=== PATIENT | male | born 1950 | race Caucasian/White ===

== ENCOUNTER 2020-08-18 08:46 | Outpatient (CLI) | payer MEDICARE, OTHER, SELFPAY ==
--- NOTE | 2020-08-18 08:50 | CT_ITS ---
WS: [id number] LDCT LUNG CANCER SCREENING TECHNIQUE: Noncontrast CT of the chest with coronal and sagittal reformatted images. CLINICAL INFORMATION: F17.210 NICOTINE DEPENDENCE COMPARISON: None. DLP: 61.31 mGy.cm DIvol: 1.[address] scans at [facility] use at least one of these dose optimization techniques: automat ed exposure control; mA and/or kV adjustment per patient size (includes targeted exams where dose is matched to clinical indication); or iterative reconstruction. FINDINGS: Moderate chronic emphysematous changes. No acute pulmonary infiltrates. Noncalcified slightly spicula yoana nodule right upper lobe measuring 5.1 mm. Calcified granuloma right lower lobe. No mediastinal or hilar lymphadenopathy. Aortic calcification. Coronary calcification. No axillary ly mphadenopathy. Hypertrophic changes thoracic spine. Bilateral adrenal adenomas partially visualized a ppear stable since 2018.. CT/CT lung screening [id number] IMPRESSION: LUNG-RADS: 4A-Probably Suspicious FOLLOW UP: 3 Month LDCT
== END 2020-08-18 08:47 | disposition home or self-care (01) ==
LOC: CT 08:47
PROVIDERS: PCP Family Medicine; Visit Provider Family Medicine
DX: Z12.2 Encounter for screening for malignant neoplasm of respiratory organs (principal); F17.210 Nicotine dependence, cigarettes, uncomplicated
CPT/HCPCS: 71271

== ENCOUNTER 2020-12-08 14:06 | Outpatient (CLI) | payer MEDICARE, OTHER, SELFPAY ==
--- NOTE | 2020-12-08 14:13 | CT_ITS ---
WS: [id number] CT CHEST WITHOUT INTRAVENOUS CONTRAST HISTORY: LUNG NODULE TECHNIQUE: Contiguous 5 mm axial imaging performed on the thorax. Coronal and sagittal reformats are submitted. All CT scans at [facility] use at least one of these dose optimization techniq ues: automated exposure control; mA and/or kV adjustment per patient size (includes targeted exams wh ere dose is matched to clinical indication); or iterative reconstruction. CONTRAST: None DLP: 321.73 mGy-cm. COMPARISON: 08/18/2020 Lungs and central airway: Chronic emphysema. 5.8 mm lobulated nodule in the RIGHT upper lobe is stabl e. No increase in size. No new uncalcified pulmonary nodules. Benign granuloma at the RIGHT lung base . Pleura: Normal. No pleural effusion. Heart and pericardium: Normal size heart with no pericardial effusion. Mediastinum and dheeraj: Several small mediastinal and hilar lymph nodes. No increase in size of these l ymph nodes. Vessels: Mild atherosclerosis aorta. Normal size pulmonary artery. Chest wall and lower neck: No soft tissue masses. Upper abdomen: Patient has known bilateral adrenal masses. Largest on the RIGHT measures 3.4 x 2.4 cm consistent with adenomas. Gallbladder is contracted. Osseous structures: No destructive process. CT/CT chest wo con [id number] IMPRESSION: 1. Stable 5.8 mm lobulated nodule RIGHT upper lobe since 08/18/2020. Recommend additional chest CT follow-up at 6-12 months. 2. Stable bilateral adrenal adenomas. 3. Chronic emphysema.
== END 2020-12-08 14:07 | disposition home or self-care (01) ==
LOC: RADWPI 14:10
PROVIDERS: PCP Family Medicine; Visit Provider Family Medicine
DX: R91.1 Solitary pulmonary nodule (principal); J43.9 Emphysema, unspecified; D35.02 Benign neoplasm of left adrenal gland; D35.01 Benign neoplasm of right adrenal gland
CPT/HCPCS: 71250

== ENCOUNTER 2021-02-17 09:43 | Outpatient (CLI) | payer MEDICARE, OTHER, SELFPAY ==
--- NOTE | 2021-02-17 09:52 | CT_ITS ---
WS: [id number] LDCT LUNG CANCER SCREENING TECHNIQUE: Noncontrast CT of the chest with coronal and sagittal reformatted images. CLINICAL INFORMATION: NICOTINE DEPENDENCE,CIGARETTES COMPARISON: 12/08/2020 and 08/18/2020 DLP: 57.35 mGy.cm DIvol: 1.[address] scans at [facility] use at least one of these dose optimization techniques: automat ed exposure control; mA and/or kV adjustment per patient size (includes targeted exams where dose is matched to clinical indication); or iterative reconstruction. FINDINGS: Slightly spiculated right upper lobe pulmonary nodule measuring 5.9 mm. This is unchanged in size com pared to the prior CT 08/18/2020 and 12/08/2020. This has a suspicious appearance with persistent spicu lated borders although size is stable. Recommend additional 6 month follow-up. No other suspicious pulmonary parenchymal opacities. No focal pneumonia or pleural fluid. No mediasti nal or hilar lymphadenopathy. Vascular calcification. Coronary calcification. Numerous normal sized a nterior mediastinal lymph nodes. Normal GE junction. Partially visualized bilateral adrenal adenomas. Anterior hypertrophic changes t horacic spine. CT/CT lung screening [id number] IMPRESSION: LUNG-RADS: 4A-Probably Suspicious FOLLOW UP: 6 Month LDCT
== END 2021-02-17 09:44 | disposition home or self-care (01) ==
LOC: RAD 09:49
PROVIDERS: PCP Family Medicine; Visit Provider Family Medicine
DX: Z12.2 Encounter for screening for malignant neoplasm of respiratory organs (principal); F17.210 Nicotine dependence, cigarettes, uncomplicated
CPT/HCPCS: 71271

== ENCOUNTER 2021-09-22 13:01 | Outpatient (CLI) | payer MEDICARE, OTHER, SELFPAY ==
--- NOTE | 2021-09-22 13:15 | CT_ITS ---
WS: [id number] LDCT LUNG CANCER SCREENING HISTORY: NICOTINE DEPENDENCE TECHNIQUE: Axial imaging performed from the apices to 1 cm below the costophrenic angles. Coronal and sagittal reformats are submitted with axial MIP series. All CT scans at [facility] use at least one of these dose optimization techniques: automated exposure control; mA and/or kV adjustment per patient size (includes targeted exams where dose is matched to clinical indication); or iterativ e reconstruction. DLP: 65.27 mGy.cm DIvol: Mean CTDIvol: 1.58 (mGy) COMPARISON: 02/17/2021, 08/18/2020 Diagnostic quality: Satisfactory Lung Nodules: Stable spiculated 6 mm nodule RIGHT upper lobe. No new pulmonary nodules or increasing nodule. No endobronchial lesions. Lungs: Hyperexpanded lungs from emphysema. Heart: Normal size. Scattered coronary artery calcifications. Other findings: Mild atherosclerosis aorta. Normal size pulmonary artery. Scattered mediastinal and h ilar lymph nodes. No increase in size of the adenopathy. Largest lymph node in the RIGHT paratracheal region is 8 mm. Small hiatal hernia. Bilateral adrenal adenomas. Mild increase in thoracic kyphosis. CT/CT lung screening [id number] IMPRESSION: LUNG-RADS: 3-Probably Benign FOLLOW UP: 6 Month LDCT OTHER FINDINGS (S MODIFIER): None. Recommend continued 6 month low-dose CT follow-up to document long-term stabili ty of the spiculated nodule RIGHT upper lobe.
== END 2021-09-22 13:02 | disposition home or self-care (01) ==
LOC: RAD 13:02
PROVIDERS: PCP Family Medicine; Visit Provider Family Medicine
DX: Z12.2 Encounter for screening for malignant neoplasm of respiratory organs (principal); F17.210 Nicotine dependence, cigarettes, uncomplicated
CPT/HCPCS: 71271

== ENCOUNTER 2022-05-21 10:37 | Outpatient (CLI) | payer MEDICARE, OTHER, SELFPAY ==
--- NOTE | 2022-05-21 | CT_ITS ---
WS: [id number] CT CHEST WITHOUT INTRAVENOUS CONTRAST HISTORY: Solitary pulmonary nodule. TECHNIQUE: Contiguous 5 mm axial imaging performed on the thorax. Coronal and sagittal reformats are submitted. All CT scans at [facility] use at least one of these dose optimization techniques: automated exposure control; mA and/or kV adjustment per patient size (includes targeted exams where dose is matched to clinical indication); or iterative reconstruction. CONTRAST: None DLP: 709.76 mGy.cm COMPARISON: 09/22/2021 Lungs and central airway: Moderate pulmonary hyperexpansion. No interval change in the slightly spicu lated 6 mm nodule in the RIGHT upper lobe since 08/18/2020. There may be slight calcification within t his nodule on today's imaging study. Changes of centrilobular emphysema with pulmonary hyperexpansion . Benign granuloma at the RIGHT lung base. Pleura: Normal. No pleural effusion. Heart and pericardium: Normal size heart. No pericardial effusion. Scattered coronary artery calcific ations. Mediastinum and dheeraj: There are several small mediastinal and hilar lymph nodes measuring up to 8 mm. No increase in size or number over the last several examinations. Vessels: Atherosclerosis aorta. No aneurysm. Normal size pulmonary artery. Chest wall and lower neck: No soft tissue masses. Upper abdomen: Bilateral long-term stability adrenal adenomas. The largest involving the RIGHT adrena l gland measures 3.4 x 3.4 cm. No increase in size. Osseous structures: Increase in thoracic kyphosis. No osteoblastic or osteolytic bone disease. CT/CT chest wo con [id number] IMPRESSION: 1. Stable slightly spiculated nodule RIGHT upper lobe measuring 6 mm maximum d iameter. No change since 08/18/2020. Recommend additional 6 month follow-up to d ocument 2 years of stability. 2. Moderate centrilobular emphysema. 3. Long-term stability bilateral adrenal adenomas.
== END 2022-05-21 10:38 | disposition home or self-care (01) ==
LOC: RAD 10:38
PROVIDERS: PCP Family Medicine; Visit Provider Family Medicine
DX: R91.1 Solitary pulmonary nodule (principal); J43.2 Centrilobular emphysema; D35.02 Benign neoplasm of left adrenal gland; D35.01 Benign neoplasm of right adrenal gland
CPT/HCPCS: 71250

== ENCOUNTER → 2022-11-10 08:47 | Outpatient (BNVA) | payer MEDICARE, OTHER, SELFPAY | PROVIDERS: PCP Family Medicine; Visit Provider Dermatology | DX: C44.622 Squamous cell carcinoma of skin of right upper limb, including shoulder (principal) | CPT/HCPCS: 11603; 12034 ==

== ENCOUNTER → 2023-03-17 13:52 | Outpatient (BNVA) | payer MEDICARE, OTHER, SELFPAY | PROVIDERS: PCP Family Medicine; Visit Provider Nurse Practitioner Family | DX: L57.0 Actinic keratosis (principal); D23.71 Other benign neoplasm of skin of right lower limb, including hip; D18.01 Hemangioma of skin and subcutaneous tissue; L81.4 Other melanin hyperpigmentation; L57.8 Other skin changes due to chronic exposure to nonionizing radiation; L85.3 Xerosis cutis; Z85.828 Personal history of other malignant neoplasm of skin | CPT/HCPCS: 17000; 17003; 99213 ==

== ENCOUNTER 2023-03-23 13:21 | Emergency (ER) | payer MEDICARE, OTHER, SELFPAY ==
[2023-03-23 13:38] VITALS: BP 169/88; PULSE 108; RESP 22; TEMP 36.5; O2SAT 93; BMI 24.3
--- NOTE | 2023-03-23 14:35 | XR_ITS ---
WS: [id number] Exam: XR lumbar spine 2-3V* [id number] Date/Time of Exam: 03/23/2023 2:35 PM Reason For Exam: low back pain Comparison 02/06/2019. No fracture or dislocation. There is spondylosis. Moderate degenerative disc narrowing from L3-S1. Mi ld facet DJD at all levels. No scoliosis identified. IMPRESSION: 1. No fracture or malalignment. 2. Spondylosis and degenerative disc changes as above.
[2023-03-23] MEDS: dexamethasone 10 mg/mL INJ IM (15:55)
[2023-03-23] MEDS: ketorolac 60 mg/2 mL INJ IM (15:57)
[2023-03-23] MEDS: orphenadrine 30 mg/mL Inj 2 mL 60 MG IM (15:59)
--- NOTE | 2023-03-23 16:00 | W.ED.BACK ---
HPI - Back Pain/Injury General: Chief Complaint: Back Pain/Injury Stated Complaint: low back pain Time Seen by Provider: 03/23/23 15:44 History of Present Illness: Patient presents to the ER with complaint of his back flared up again. Patient stated his back pain began about 5 days ago. Patient denies any mechanism of injury at this time. He states his back just flares up every once in a while. Patient says he has been self-medicating at home with alcohol but has not worked very good. Patient denies having any pain medicine, muscle relaxers, anti-inflammatories at home. Patient says the pain occasionally radiates down the right leg but currently is situated only in the lumbar region. Review of Systems General: Reports: 10 or more systems reviewed and unremarkable except in HPI and below PFSH ED PFSH: Medical History COPD (chronic obstructive pulmonary disease) Hyperglycemia No pertinent family history Surgical History No pertinent past surgical history Social History Smoking and tobacco status: current every day smoker Physical Exam Const: COMMON NORMALS: no acute distress, average body habitus, patient oriented x3, no limitations, healthy appearing, alert and well nourished HENMT: COMMON NORMALS: normocephalic, atraumatic, hearing grossly normal bilaterally, external ears normal, Normal external nose present and moist oral mucous membranes HEAD & SCALP: normocephalic and atraumatic NOSE: Normal external nose present EXTERNAL EAR: Yes external ears normal Eye: COMMON NORMALS: Equal, round and reactive pupils present, EOMs intact bilaterally, conjunctivae normal and no scleral icterus CONJUNCTIVA: Yes conjunctivae normal PUPIL: Yes Equal, round and reactive pupils present Neck/C-Spine: COMMON NORMALS: full ROM, no lymphadenopathy, supple, no meningeal signs, no JVD and Thyroid normal THYROID: Thyroid normal Chest: COMMONS NORMALS: normal inspection of the chest and normal palpation of entire chest wall Resp: COMMON NORMALS: normal respiratory effort, No retractions, No use of accessory muscles and clear to auscultation bilaterally AUSCULTATION: clear to auscultation bilaterally Cardio: COMMON NORMALS: no JVD, regular rate, regular rhythm, S1 normal heart sound present, S2 normal heart sound present, No gallops present (Cardio), No clicks present (Cardio), No murmurs present (Cardio) and No rub (Cardio) RATE: regular rate RHYTHM: regular rhythm HEART SOUNDS: S1 normal heart sound present and S2 normal heart sound present GI: COMMON NORMALS: Normal to inspection, nondistended, normoactive bowel sounds present, Soft to palpation, non-tender, No hepatosplenomegaly present and no masses PALPATION: Yes Soft to palpation and Yes No hepatosplenomegaly present : COMMON NORMALS: Yes no CVA tenderness BLADDER/KIDNEY EXAM: Yes no CVA tenderness Back/Pelvis: COMMON NORMALS: no CVA tenderness OTHER: General paraspinal muscle spasm/tenderness in the lower lumbar region. No vertebral tenderness noted no radiation of pain noted. Neuro: COMMON NORMALS: patient oriented x3 SENSORIUM/ORIENTATION: Yes alert MENINGEAL SIGNS: Yes no meningeal signs Course Vital Signs: Vital signs: Vital Signs Temperature 97.7 F 03/23/23 13:38 Pulse Rate 108 H 03/23/23 13:38 Respiratory Rate 22 H 03/23/23 13:38 Blood Pressure 169/88 03/23/23 13:38 Pulse Oximetry 93 03/23/23 13:38 Oxygen Delivery Me thod Room Air 03/23/23 13:38 MDM - Back Pain/Injury Medical Decision Making Patient presents to the ER with complaint of flared up of his low back pain. X-rays were taken which were negative. Patient was given a shot of Toradol 60 mg, Norflex 60 mg, and Decadron 10 mg, this did much to relieve the patient's pain. Patient be discharged on prednisone and meloxicam. Patient to follow-up with his PCP in approximately 7 days or sooner as needed. Differential Diagnosis Unlikely lumbar radiculopathy, sciatica, strain of lumbar region, renal colic, pyelonephritis, thoracic back pain, AAA or discitis Medical Records I reviewed the patient's medical records. Labs I reviewed the patient's lab results. 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, lumbosacral region Low back pain Qualifiers: Chronicity: unspecified Back pain laterality: bilateral Sciatica presence: without sciatica Qualified Code(s): M54.50 - Low back pain, unspecified Condition: Stable Prescriptions: New prednisone 50 mg tablet 50 mg PO DAILY 7 Days Qty: 7 0RF meloxicam 7.5 mg tablet 7.5 mg PO BID PRN (Reason: pain) Qty: 20 0RF No Action nicotine 21 mg/24 hr patch 24 hour 1 patch transdermal DAILY metformin 500 mg tablet 500 mg PO DAILY Anoro Ellipta 62.5-25 mcg/actuation blister with device 1 inh inhalation DAILY losartan 100 mg tablet 100 mg PO DAILY Discharge Orders: Discharge ED (Routine); Ordered 03/23/23 Ordered By: Mane Nelson Referrals: Latrell Syed MD [Primary Care Provider] - 1 week Patient Instructions: Acute Low Back Pain (ED), Pain Management Activity Restrictions/Additional Instructions: Take all your medicine as directed. Please follow-up with your family practice physician in the next 7 days or sooner as needed. For further evaluation and treatment. Coding Level of Care Code ED Forming Roll Operator Heavy Duty for Harjeet Yarbrough
== END 2023-03-23 16:37 | disposition home or self-care (01) ==
PROVIDERS: Emergency Provider Emergency Medicine; PCP Family Medicine
DX: M47.817 Spondylosis without myelopathy or radiculopathy, lumbosacral region (principal); J44.9 Chronic obstructive pulmonary disease, unspecified; F17.210 Nicotine dependence, cigarettes, uncomplicated
CPT/HCPCS: 72100; 96372; 99284; J1100; J1885; J2360

== ENCOUNTER 2023-06-06 12:02 | Outpatient (CLI) | payer MEDICARE, SELFPAY ==
--- NOTE | 2023-06-06 12:04 | CT_ITS ---
WS: [id number] LDCT LUNG CANCER SCREENING TECHNIQUE: Noncontrast CT of the chest with coronal and sagittal reformatted images. CLINICAL INFORMATION: NICOTINE DEPENDENCE,CIGARETTES COMPARISON: 05/21/2022 and 09/22/2021 DLP: 52.69 mGy.cm DIvol: Mean CTDIvol: 0.90 (mGy) All CT scans at [facility] use at least one of these dose optimization techniques: automat ed exposure control; mA and/or kV adjustment per patient size (includes targeted exams where dose is matched to clinical indication); or iterative reconstruction. FINDINGS: Stable slightly spiculated nodule RIGHT upper lobe measuring 6 mm appears unchanged since 1 and 09/22/2021. This is stable dating back to 08/06/2019 Moderate chronic emphysematous changes. No mediastinal or hilar lymphadenopathy. Aortic calcification . Coronary calcification. No axillary lymphadenopathy. Stable bilateral adrenal adenomas. Small esophageal hernia. Air-fluid level in the stomach. Hypertrop hic changes thoracic spine with ankylosis. IMPRESSION: CT/CT lung screening [id number] LUNG-RADS: 2-Benign Appearance or Behavior FOLLOW UP: 12 Month: Continue annual screening with LDCT
== END 2023-06-06 12:03 | disposition home or self-care (01) ==
LOC: RAD 12:02
PROVIDERS: PCP Family Medicine; Visit Provider Family Medicine
DX: Z12.2 Encounter for screening for malignant neoplasm of respiratory organs (principal); F17.210 Nicotine dependence, cigarettes, uncomplicated
CPT/HCPCS: 71271

== ENCOUNTER → 2023-09-19 09:38 | Outpatient (BNVA) | payer MEDICARE, OTHER, SELFPAY | PROVIDERS: PCP Family Medicine; Visit Provider Nurse Practitioner Family | DX: L57.8 Other skin changes due to chronic exposure to nonionizing radiation (principal); L81.4 Other melanin hyperpigmentation; L57.0 Actinic keratosis; L82.1 Other seborrheic keratosis | CPT/HCPCS: 17000; 99213 ==

== ENCOUNTER → 2024-03-08 10:32 | Outpatient (BNVA) | payer MEDICARE, OTHER, SELFPAY | PROVIDERS: PCP Family Medicine; Visit Provider Nurse Practitioner Family | DX: L57.8 Other skin changes due to chronic exposure to nonionizing radiation (principal); L81.4 Other melanin hyperpigmentation; L57.0 Actinic keratosis; L82.1 Other seborrheic keratosis; Z85.828 Personal history of other malignant neoplasm of skin | CPT/HCPCS: 17000; 99213 ==

== ENCOUNTER 2024-06-19 07:46 | Outpatient (CLI) | payer MEDICARE, OTHER, SELFPAY ==
--- NOTE | 2024-06-19 07:57 | CT_ITS ---
WS: [id number] LDCT LUNG CANCER SCREENING TECHNIQUE: Noncontrast CT of the chest with coronal and sagittal reformatted images. CLINICAL INFORMATION: NICOTINE DEPENDENCE,CIGARETTES COMPARISON: 06/06/2023 DLP: 51.49 mGy.cm DIvol: Mean CTDIvol: 0.80 (mGy) All CT scans at [facility] use at least one of these dose optimization techniques: automat ed exposure control; mA and/or kV adjustment per patient size (includes targeted exams where dose is matched to clinical indication); or iterative reconstruction. FINDINGS: Previously described slightly spiculated nodule RIGHT upper lobe measuring 6 mm appears stable since 06/06/2023, 05/21/2022, 09/22/2021, and 08/06/2019. 2 small nodules in the RIGHT upper lobe appear new f rom previous measuring 2 to 3 mm. Tiny nodule RIGHT middle lobe. Stable bilateral adrenal adenomas. Moderate chronic emphysematous changes similar to previous. No med iastinal or hilar lymphadenopathy. Aortic calcification. Coronary calcification. No axillary lymphade nopathy. Small esophageal hernia. Hypertrophic changes thoracic spine with ankylosis. CT/CT lung screening [id number] IMPRESSION: LUNG-RADS: 2-Benign Appearance or Behavior FOLLOW UP: 12 Month: Continue annual screening with LDCT
== END 2024-06-19 07:47 | disposition home or self-care (01) ==
LOC: RAD 07:48
PROVIDERS: PCP Family Medicine; Visit Provider Family Medicine
DX: Z12.2 Encounter for screening for malignant neoplasm of respiratory organs (principal); F17.210 Nicotine dependence, cigarettes, uncomplicated; R91.8 Other nonspecific abnormal finding of lung field; D35.01 Benign neoplasm of right adrenal gland; D35.02 Benign neoplasm of left adrenal gland; J43.9 Emphysema, unspecified; I70.0 Atherosclerosis of aorta; I25.84 Coronary atherosclerosis due to calcified coronary lesion
CPT/HCPCS: 71271

== ENCOUNTER → 2024-10-05 10:35 | Outpatient (BNVA) | payer MEDICARE, OTHER, SELFPAY | PROVIDERS: PCP Family Medicine; Visit Provider Nurse Practitioner Family | DX: L82.1 Other seborrheic keratosis (principal); L57.8 Other skin changes due to chronic exposure to nonionizing radiation; L81.4 Other melanin hyperpigmentation; Z08 Encounter for follow-up examination after completed treatment for malignant neoplasm; Z85.828 Personal history of other malignant neoplasm of skin; L57.0 Actinic keratosis | CPT/HCPCS: 17004; 99213 ==

== ENCOUNTER → 2025-02-04 11:20 | Outpatient (BNVA) | payer MEDICARE, OTHER, SELFPAY | PROVIDERS: PCP Family Medicine; Visit Provider Nurse Practitioner Family | DX: L57.8 Other skin changes due to chronic exposure to nonionizing radiation (principal); L81.4 Other melanin hyperpigmentation; Z08 Encounter for follow-up examination after completed treatment for malignant neoplasm; Z85.828 Personal history of other malignant neoplasm of skin; L57.0 Actinic keratosis | CPT/HCPCS: 17004; 99213 ==

== ENCOUNTER 2025-07-16 14:08 | Outpatient (CLI) | payer MEDICARE, OTHER, SELFPAY ==
--- NOTE | 2025-07-16 14:16 | CT_ITS ---
WS: [id number] LDCT LUNG CANCER SCREENING HISTORY: NICOTINE DEPENDENCE,CIGARETTES TECHNIQUE: Axial imaging performed from the apices to 1 cm below the costophrenic angles. Coronal and sagittal reformats are submitted with axial MIP series. All CT scans at [facility] use at least one of these dose optimization techniques: automated exposure control; mA and/or kV adjustment per patient size (includes targeted exams where dose is matched to clinical indication); or iterative reconstruction. DLP: 66.12 mGy.cm DIvol: Mean CTDIvol: 1.20 (mGy) COMPARISON: CT abdomen 06/08/2017, CT lung screening 06/19/2024 Diagnostic quality: Satisfactory Lungs: Hyperinflated lungs from emphysema. Reidentified is the 5 mm slightly spiculated nodule in the RIGHT upper lobe which is stable over multiple prior years. The additional very tiny nodules in the RIGHT upper lobe are not identified on today's exam. Heart: Normal size heart with no pericardial effusion.. Scattered coronary artery calcifications. Other findings: Very mild atherosclerosis aorta. Normal size aorta and pulmonary artery. No pathologically enlarged lymph nodes. Small hiatal hernia. Bilateral stable adrenal adenomas. Suprarenal aortic calcifications. Increase in thoracic kyphosis. Hypertrophic bridging osteophytes in the mid thoracic spine. CT/CT lung screening [id number] IMPRESSION: LUNG-RADS: 2-Benign Appearance or Behavior FOLLOW UP: 12 Month: Continue annual screening with LDCT OTHER FINDINGS (S MODIFIER): None.
== END 2025-07-16 14:09 | disposition home or self-care (01) ==
LOC: RAD 14:09
PROVIDERS: PCP Family Medicine; Visit Provider Family Medicine
DX: Z12.2 Encounter for screening for malignant neoplasm of respiratory organs (principal); F17.210 Nicotine dependence, cigarettes, uncomplicated; J43.9 Emphysema, unspecified; I25.10 Atherosclerotic heart disease of native coronary artery without angina pectoris; I70.0 Atherosclerosis of aorta; K44.9 Diaphragmatic hernia without obstruction or gangrene; I35.8 Other nonrheumatic aortic valve disorders; M40.204 Unspecified kyphosis, thoracic region; M25.78 Osteophyte, vertebrae
CPT/HCPCS: 71271